=== PATIENT | male | born 1950 | race Caucasian/White ===

== ENCOUNTER → 2017-03-01 | Outpatient (CLI) | payer OTHER ==
[~2017-03-01] VITALS: Ht 180.3 cm; Wt 7.7 kg
[~2017-03-01] MED LIST: BYSTOLIC 5 MG5 M1 PO; MOBIC15 MG PO; [UNRECOGNIZED DRUG - CODE] PO
--- NOTE | ~2017-03-01 | HPC ---
[facility] [place] [address] PAIN MANAGEMENT CONSULTATION Name: SOFIA ROBB Room #: REG [facility] Diony#: [id number] Admission: 03/01/17 Attend Phys: Reena Ewing MD Discharge: Date of : 54 Report #: [id number] THIS REPORT FOR: //name// CC: Ramiro Ewing DATE OF SERVICE: 03/01/2017 CHIEF COMPLAINT: Back and leg pain. HISTORY OF PRESENT ILLNESS: The patient is a 66-year-old gentleman who has been referred to the pain clinic for evaluation of right leg and back discomfort. The patient states that he was skiing earlier this year. He suffered a fall. He was evaluated and MRI showed an anterior labral tear and a partial thickness chondral defect involving the anterior acetabular area of his right hip. He has seen an orthopedic surgeon. He has had injections for pain, which he experienced in the right greater trochanteric area. He felt that that injection had some benefit. He continues to have pain and discomfort in the right low back area with pain radiating down into his leg with some cramping and neurologic changes in his lower extremity. He has had epidural steroid injections in the past and gleaned benefit of greater than 50% for a number of months with that treatment course. He has used nonsteroidal anti-inflammatory medications. He has tried bending and stretching activities with ice. He notes that his pain worsened after playing a game of golf. He was unable to complete 18 holes. He describes this discomfort as continuous, periodic cramping, aching, pulling, tender and rates it as a 6/10. ALLERGIES: No known drug allergies. MEDICATIONS: Nystatin units by mouth every day, Bystolic 5 mg daily and Mobic 15 mg daily. PAST MEDICAL HISTORY: Hypertension, coronary artery disease, hypercholesterolemia, ex-smoker, chronic insomnia, chronic obstructive sleep apnea; lumbar spinal stenosis at L3-L4 0.8, L4-L5 0.7 AP diameter. Colonoscopy indicates diverticulitis . SURGERY/PROCEDURES: 1. Shoulder surgery in 1994, throat surgery in 2001, foot surgery in 2012. 2. Local steroid injection to the greater trochanteric area on the right trochanteric bursitis, little benefit. 3. MRI arthrogram demonstrated anterior labral tear, nondisplaced and thinning of the chondral surface involving the superior acetabulum. 4. Fluoroscopically guided right hip joint steroid injection, little influence on the severity of the pain. Pain in the lateral thigh which is most severe and [address] [address] PAIN MANAGEMENT CONSULTATION Name: SOFIA ROBB Room #: REG [facility]#: [id number] Admission: 03/01/17 Attend Phys: Reena Ewing MD Discharge: Date of : 54 Report #: [id number] extends to the ankle. 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 PHYSICAL EXAMINATION: Blood pressure 118/70, pulse 61, respiratory rate is 20, room air saturation is 98%. The patient has pain and discomfort in the lower portion of his back with increased pain and discomfort in the right leg with straight leg raise. Complains of increased cramping and discomfort in the right leg down below the knee. Notes worsening pain and discomfort with extension of his leg. IMPRESSION: Lumbar radiculopathy involving the right leg with numbness, weakness and tenderness below the knee - the patient had epidural steroid injection in the past and improved with their use. He has returned today for an epidural steroid injection to note its efficacy. Risks and benefits of the procedure were explained to the patient. A model was used to indicate the area of probable pathology. Risks and benefits were accepted by the patient and he elects to proceed. REVIEW OF SYSTEMS: A 14-point system; questionnaire indicates generally good health, hearing loss, chronic frequent coughs, fatigue, weakness, bleeding and bruising tendencies, otherwise unremarkable. LABORATORY DATA: MRI of the right hip dated 02/15/2017 reveals anterior labral tear and a partial thickness chondral defect involving the anterior superior acetabulum measuring approximately 8 x 10 mm. MRI of the lumbar spine without contrast dated 11/26/2015 reveals L3-L4 large circumferential bulging annulus with mild facet hypertrophy, neural foraminal and lateral recess encroachment noted, encroachment on the anterior thecal sac seen. Thecal sac AP diameter 0.8 cm. L4-L5 mild anterolisthesis of L4 on L5. Circumferential bulging annulus. Flattening of the anterior thecal sac. Marked facet hypertrophy. Narrowing of the neural foramen and lateral recesses, canal stenosis. Thecal sac AP diameter 0.7 cm. L5-S1 intervertebral disk facet and foramen appear normal AP diameter is 1.8 cm. RECOMMENDATIONS: We discussed treatment options with the patient. Risks and benefits of an epidural steroid injection were discussed. A model was used to indicate the area of probable pathology. The patient understands. Possible complications which could include but are not limited to infection, increased muscle soreness headache, muscle trauma, nerve trauma and bleeding were explained. The patient elects to proceed. PROCEDURE NOTE: The patient was placed in the prone position. Fluoroscopy was used to identify the L5-L4 interspace. This area had been sterilely prepped with Betadine and infiltrated with 0.25% bupivacaine. A total of 80 mg Depo-Medrol, 40 mg triamcinolone and 2 mL of 0.25% bupivacaine was injected. A [facility] [address] [place] [address] PAIN MANAGEMENT CONSULTATION Name: SOFIA ROBB Room #: REG [facility] Keerthi.#: [id number] Admission: 03/01/17 Attend Phys: Reena Ewing MD Discharge: Date of : 54 Report #: [id number] total of 6 seconds fluoroscopy time was used. The patient tolerated the procedure well. There were no complications. His pain level was judged to be 4 at the time of discharge. He will follow up in the near future. We would like to thank you for letting us participate in his care. We hope he continues to improve. By: [id number] Reena Ewing MD /nt
[2017-03-01 08:59] VITALS: BP 115/71
== END ==
LOC: PAIN 06:47
DX: M79.661 Pain in right lower leg (principal); I10 Essential (primary) hypertension; I25.10 Atherosclerotic heart disease of native coronary artery without angina pectoris; E78.00 Pure hypercholesterolemia, unspecified; G47.33 Obstructive sleep apnea (adult) (pediatric); M70.61 Trochanteric bursitis, right hip; M54.16 Radiculopathy, lumbar region; Z87.891 Personal history of nicotine dependence

== ENCOUNTER → 2017-03-15 | Outpatient (CLI) | payer OTHER ==
[~2017-03-15] VITALS: Ht 177.8 cm; Wt 80.7 kg
--- NOTE | ~2017-03-15 | HPC ---
[facility] [place] [address] PAIN MANAGEMENT CONSULTATION Name: SOFIA ROBB [facility] [id number] Admission: 03/15/17 Attend Phys: Reena Ewing MD Discharge: Date of : 54 Report #: [id number] THIS REPORT FOR: //name// CC: Ramiro Ewing DATE OF SERVICE: 03/15/2017 FOLLOWUP HISTORY: The pain was better, but I would not be able to play a whole game of golf. FOLLOWUP HISTORY: The patient is a 66-year-old gentleman who has been seen in the pain clinic because of lumbar radiculopathy. He underwent an epidural steroid injection at the last visit. He gleaned greater than 50% improvement in the pain. He tried to golf this past week. He did note some increased pain and discomfort. He had no complications from the last injection, no bowel or bladder dysfunction. He is having pain and discomfort in the right hip with pain radiating down the right side with tightness, tenderness and aching involving the affected area. He notes that the pain is exacerbated by standing. Notes that it improves with as well as when lying down. PHYSICAL EXAMINATION: Blood pressure 115/71, pulse 68, respiratory rate 18, room air saturation 97%. The patient has pain and discomfort radiating down into the L4-L5 distribution of his right leg. IMPRESSION: 1. Lumbar radiculopathy involving the right leg with numbness, weakness, tenderness below the knee. RECOMMENDATIONS: We discussed treatment options with the patient. Risks and benefits of the injections, which could include infection, increased muscle soreness, bleeding, headaches, improvement in pain or no improvement in pain were discussed and the patient elects to proceed. PROCEDURE NOTE: The patient was placed in the prone position. His back was sterilely prepped with a Betadine solution. 0.25% bupivacaine was injected at the L4-L5 interspace. A 17-gauge Tuohy with loss of resistance technique was used to gain access to the epidural space. There was no CSF, heme or paresthesia. Total of 80 mg Depo-Medrol, 40 mg triamcinolone and 2 mL of 0.25% bupivacaine was injected. The patient tolerated the procedure well. There were no complications. His pain level was rated at 2 at [place] [address] PAIN MANAGEMENT CONSULTATION Name: SOFIA ROBB Room #: REG [facility] Vora#: [id number] Admission: 03/15/17 Attend Phys: Reena Ewing MD Discharge: Date of : 54 Report #: [id number] will follow up in the future as needed. We would like to thank you for letting us participate in his care. We hope he continues to improve. By: 1404 [id number] Reena Ewing MD /nt
[2017-03-15 12:39] VITALS: BP 127/76
== END | disposition home or self-care (01) ==
LOC: PAIN 07:23
DX: M54.16 Radiculopathy, lumbar region (principal); G89.29 Other chronic pain

== ENCOUNTER → 2017-03-31 | Outpatient (CLI) | payer OTHER ==
[~2017-03-31] VITALS: Ht 177.8 cm; Wt 80.6 kg
--- NOTE | ~2017-03-31 | HPC ---
[facility] [place] [address] [place] [address] PAIN MANAGEMENT CONSULTATION Name: SOFIA ROBB Room #: REG [facility] Diony#: [id number] Admission: 03/31/17 Attend Phys: Reena Ewing MD Discharge: Date of : 54 Report #: [id number] THIS REPORT FOR: //name// CC: MAAME Ewing DATE OF SERVICE: 03/31/2017 FOLLOWUP COMPLAINT: "Pain is somewhat better and I did play little golf." FOLLOWUP HISTORY: The patient is a 66-year-old gentleman who has been seen in the pain clinic because of lumbar radiculopathy. The patient has had pain and discomfort radiating down into his right leg. He was able to play a little gold this week. He feels that things have improved, but still has some pain and discomfort. At this juncture, he feels that another injection would be helpful. He denies any bowel or bladder dysfunction. He denies any complications as a result of the previous treatment. PHYSICAL EXAMINATION: Blood pressure is 137/90, pulse 79, respiratory rate 16, room air saturation 96%. Height 5 feet 10 inches, weight 80 kg. BMI is 25. The patient has not fallen since we saw him last. He notes pain and discomfort in the right L5/L4 distribution. He would like to proceed with another injection. IMPRESSION: Lumbar radiculopathy involving the right L4-L5 distribution with weakness and tenderness, but improvement greater than 50% since last injection. RECOMMENDATIONS: We will proceed with another epidural steroid injection. Risks and benefits of the procedure were discussed. Possible complications were reviewed. The patient elects to proceed. PROCEDURE NOTE: The patient was placed in the prone position. His back was sterilely prepped with Betadine. 0.25% bupivacaine was injected at the L4-L5 interspace. A 17-gauge Tuohy with loss of resistance technique was used to gain access to the epidural space. There was no CSF, heme or paresthesia. A total of 80 mg Depo-Medrol, 40 mg triamcinolone and 2 mL of 0.25% bupivacaine was injected. The patient tolerated the procedure well. There were no complications. He remained in the pain clinic for an appropriate amount of time. His pain was judged to be 2 at the time of discharge. [address] [address] PAIN MANAGEMENT CONSULTATION Name: SOFIA ROBB Room #: REG [facility] Diony#: [id number] Admission: 03/31/17 Attend Phys: Reena Ewing MD Discharge: Date of : 54 Report #: [id number] We would like to thank you for letting us participate in his care. We hope he continues to improve. By: 1323 2203 Reena Ewing MD /nt
[2017-03-31 09:42] VITALS: BP 137/90
== END ==
LOC: PAIN 06:48
DX: M54.16 Radiculopathy, lumbar region (principal); I10 Essential (primary) hypertension; F10.21 Alcohol dependence, in remission

== ENCOUNTER → 2018-02-07 | Outpatient (CLI) | payer OTHER ==
[~2018-02-07] VITALS: Ht 177.8 cm; Wt 84.7 kg
[~2018-02-07] MED LIST changes: +FLOMAX0.4 MG PO
--- NOTE | ~2018-02-07 | HPC ---
[facility] [address] [place] [address] PAIN MANAGEMENT CONSULTATION Name: SOFIA ROBB Room #: REG [facility] Diony#: [id number] Admission: 02/07/18 Attend Phys: Reena Ewing MD Discharge: Date of : 54 Report #: [id number] THIS REPORT FOR: //name// CC: Ramiro Ewing DATE OF SERVICE: 02/07/2018 FOLLOWUP COMPLAINT: Flareup of right calf pain. FOLLOWUP HISTORY: The patient is a 67-year-old gentleman who has been seen in the Pain Clinic in the past because of lumbar radiculopathy. He has noted, over the last few weeks, a flareup in his pain. This occurred in November of this year. The patient states that he has played some golf, noted some worsening of pain. Certain activities have exacerbated his pain. He is having pain that is radiating down into his right leg. He has been feeling some tenderness, tightness, stabbing, and tingling with weakness involving the leg. He rates it as 7/10. He has some difficulty bearing weight. He has been walking with an antalgic gait. He has tried "lying down, sitting, stretching and bending" to help decrease the pain and discomfort. At this juncture, it has reached a level that is quite problematic and he has returned to the Pain Clinic for treatment. ALLERGIES: No known drug allergies. CURRENT MEDICATIONS: Flomax 0.4 mg daily, nystatin 50,000 units, Bystolic 5 mg daily, Meloxicam 15 mg daily. PAIN CLINIC ASSESSMENT: 1. The patient is not being treated for osteoarthritis, but did have a right hip anterior labral tear and partial thickness chondral defect involving the superior acetabulum. 2. Height 5 feet 10 inches, weight 186 pounds, BMI is 26. 3. Vital signs: Blood pressure 147/81, pulse 72, respiratory rate 16, room air saturation is 100%. 4. Pain intensity: 7/10. 5. Fall risk: The patient has not fallen in the last 3 months. 6. Blood thinner: The patient is not on a blood thinning medication. 7. History of hypertension: The patient is being treated for hypertension. 8. Opioid therapy greater than 6 weeks: The patient is not on opioid therapy. 9. Risk assessment tool. 10. Functional assessment tool. 11. Recreational drug use: The patient denies use of recreational drugs. 12. Tobacco: The patient has never smoked. 13. Alcohol use: He does drink [place] [address] PAIN MANAGEMENT CONSULTATION Name: SOFIA ROBB Room #: REG [facility]#: [id number] Admission: 02/07/18 Attend Phys: Reena Ewing MD Discharge: Date of : 54 Report #: [id number] PHYSICAL EXAMINATION: GENERAL: The patient is a well-developed, white male. He appears his stated age. He is alert and oriented x 3. Affect is appropriate. Speech is fluent. HEENT: Normocephalic, atraumatic. Extraocular eye muscles intact. The patient's sclerae are nonicteric. Hearing is within normal limits. CHEST: Clears to auscultation. HEART: Regular rate. ABDOMEN: Nontender. MUSCULOSKELETAL: Lower extremity muscle strength is judged to be 5/5 in the major muscle groups. The patient is walking with a limp involving the right leg. There is pain and discomfort in the posterior calf with radiation down into the calf. It involves the L4-L5 distribution on the right side. IMPRESSION: 1. Lumbar radiculopathy involving the L4-L5 distribution on the right leg. 2. Hypertension. 3. Coronary artery disease. 4. Ex-smoker. 5. Chronic insomnia. 6. Chronic obstructive pulmonary disease. RECOMMENDATIONS: We discussed treatment options with the patient. Risks and benefits of an epidural steroid injection were again reviewed. Possible complication of the procedure were discussed. They include but are not limited to infection, increased muscle soreness, headache, bleeding, nerve damage, porosis, and the patient elects to proceed. PROCEDURE NOTE: The patient was placed in the prone position. His back was sterilely prepped with a Betadine solution. The L4-L5 area was then visualized using fluoroscopy using the anterior, posterior as well as lateral approach. 0.25% bupivacaine was infiltrated into this area after it had been sterilely prepped with Betadine. A 17-gauge Tuohy with loss of resistance technique was used to gain access to the epidural space. There was no CSF, heme or paresthesia. Total of 80 mg Depo-Medrol, 40 mg triamcinolone, and 2 mL of 0.25% bupivacaine were injected. The patient's pain was 7 at the time of discharge. We would like to thank you for letting us participate in his care. We hope he continues to improve. By: [id number] Reena Ewing MD /minnie
[2018-02-07 13:03] VITALS: BP 147/81
== END | disposition home or self-care (01) ==
LOC: PAIN 01-24 07:42
DX: M54.16 Radiculopathy, lumbar region (principal); G89.29 Other chronic pain; I10 Essential (primary) hypertension; I25.10 Atherosclerotic heart disease of native coronary artery without angina pectoris; Z87.891 Personal history of nicotine dependence; F51.04 Psychophysiologic insomnia; J44.9 Chronic obstructive pulmonary disease, unspecified; Z79.899 Other long term (current) drug therapy; Z98.890 Other specified postprocedural states

== ENCOUNTER → 2018-09-12 | Outpatient (CLI) | payer OTHER ==
[~2018-09-12] VITALS: Ht 177.8 cm; Wt 82.2 kg
[~2018-09-12] MED LIST changes: +NAPROSYN500 MG PO; +RAPAFLO8 MG PO
[2018-09-12 09:39] VITALS: BP 136/78
== END ==
LOC: PAIN 06:34
DX: M79.605 Pain in left leg (principal); Z72.89 Other problems related to lifestyle

== ENCOUNTER → 2018-09-26 | Outpatient (CLI) | payer OTHER ==
[~2018-09-26] VITALS: Ht 177.8 cm; Wt 82.9 kg
[2018-09-26 08:52] VITALS: BP 141/78
== END | disposition home or self-care (01) ==
LOC: PAIN 09-21 18:18
DX: M54.16 Radiculopathy, lumbar region (principal); G89.29 Other chronic pain; I10 Essential (primary) hypertension; I25.10 Atherosclerotic heart disease of native coronary artery without angina pectoris; J44.9 Chronic obstructive pulmonary disease, unspecified; F17.210 Nicotine dependence, cigarettes, uncomplicated; Z98.890 Other specified postprocedural states; Z79.899 Other long term (current) drug therapy